=== PATIENT | male | born 2000 | race Two or more races ===

== ENCOUNTER 2024-05-13 09:58 | Emergency (ER) | payer OTHER ==
[~2024-05-13] VITALS: Ht 170.2 cm; Wt 76.2 kg
[2024-05-13] MEDS ORDERED: IBUP-1490 PO (11:40)
[2024-05-13 11:45] VITALS: BP 111/60; TEMP 98.5; O2SAT 98
== END 2024-05-13 11:45 | disposition home or self-care (01) ==
LOC: ER 09:58
DX: S61.311A Laceration without foreign body of left index finger with damage to nail, initial encounter (principal); W26.0XXA Contact with knife, initial encounter; Y93.89 Activity, other specified; Y92.89 Other specified places as the place of occurrence of the external cause; Y99.8 Other external cause status